=== PATIENT | male | born 1945 | race Caucasian/White ===

== ENCOUNTER 2017-12-07 19:30 | Outpatient (CLI) | payer MEDICARE | END 2017-12-07 19:31 | disposition home or self-care (01) | LOC: SLEEPLAB 19:30 | PROVIDERS: ATTEND Internal Medicine Critical Care Medicine | DX: G47.33 Obstructive sleep apnea (adult) (pediatric) (principal); E11.9 Type 2 diabetes mellitus without complications; I10 Essential (primary) hypertension; I25.10 Atherosclerotic heart disease of native coronary artery without angina pectoris | CPT/HCPCS: 95811 ==

== ENCOUNTER 2017-12-19 05:59 | Day surgery (SDC) | payer MEDICARE ==
[2017-12-19] MEDS ORDERED: PROPOFOL 200 MG/20 ML VIAL ONE (14:08)
--- NOTE | 2017-12-19 20:02 | OP ---
DATE OF PROCEDURE: 12/19/2017. OPERATIVE PROCEDURE: Esophagogastroduodenoscopy with biopsy. PREOPERATIVE DIAGNOSES: A 72-year-old male with recent drop in blood counts with anemia. The anemia is mild. The patient has no history of hematochezia or melena. The patient had similar e pisodes 2 years ago and he underwent colonoscopy and polypectomy. Because of recent drop in blood co unt, he was brought back for EGD. POSTOPERATIVE DIAGNOSES: 1. Normal esophagus and normal duodenum. 2. Had 2 small polyps over the stomach. PROCEDURE NOTE: The patient was placed on his left lateral position and was given sedation by Anesth esia Department. A [employer]ax video gastroscope under direct vision was passed down the oropharynx, past the GE junction into the stomach, and subsequently into the descending duodenum. The esophageal muc cullen appeared normal. The GE junction, no pathology seen. The fundus and cardia, no pathology seen. Over the gastric body, the patient was found to have 2 small gastric polyps. The polyps were biopsi ed. The incisura angularis, no pathology seen. The duodenal bulb and descending duodenum, no pathol ogy seen. The stomach was decompressed and the scope removed. DISCHARGE PLANNIN-year-old male came in for EGD because of recent drop in blood count . He does take Plavix and aspirin. The patient has no history of hematochezia or melena. He underw ent EGD with biopsy. DISCHARGE RECOMMENDATIONS: 1. The patient was advised to call me if he develops any melena, abdominal pain, hematemesis. 2. We will plan for a capsule endoscopy in the near future.
--- NOTE | 2017-12-21 09:22 | EKG ---
Test Reason : PREOP Blood Pressure : / mmHG Vent. Rate : 056 BPM Atrial Rate : 056 BPM P-R Int : 148 ms QRS Dur : 092 ms QT Int : 450 ms P-R-T Axes : 064 051 043 degrees QTc Int : 434 ms Sinus bradycardia Otherwise normal ECG When compared with ECG of 23-DEC-2016 03:46, No significant change was found Confirmed by CRISTELA WOOTEN ([id number]) on 12/21/2017 9:22:24 AM Referred By: CONRAD Confirmed By:CRISTELA WOOTEN
== END 2017-12-19 09:30 | disposition home or self-care (01) ==
LOC: SDC 05:59
PROVIDERS: ATTEND Internal Medicine Gastroenterology
PROC: 0DB78ZX Excision of Stomach, Pylorus, Via Natural or Artificial Opening Endoscopic, Diagnostic (ICD-10-PCS; principal; 2017-12-19)
DX: K29.50 Unspecified chronic gastritis without bleeding (principal); K31.7 Polyp of stomach and duodenum; D64.9 Anemia, unspecified; E11.9 Type 2 diabetes mellitus without complications; I10 Essential (primary) hypertension; E03.9 Hypothyroidism, unspecified; I25.10 Atherosclerotic heart disease of native coronary artery without angina pectoris; Z79.02 Long term (current) use of antithrombotics/antiplatelets; Z79.84 Long term (current) use of oral hypoglycemic drugs; Z79.82 Long term (current) use of aspirin; Z79.899 Other long term (current) drug therapy; Z95.5 Presence of coronary angioplasty implant and graft; Z98.890 Other specified postprocedural states; Z87.442 Personal history of urinary calculi; Z87.81 Personal history of (healed) traumatic fracture; Z87.891 Personal history of nicotine dependence
CPT/HCPCS: 36416; 88305; 88312; 93005; 93010; J2704

== ENCOUNTER 2022-04-19 12:49 | Outpatient (CLI) | payer MEDICARE | END 2022-04-19 12:50 | disposition home or self-care (01) | LOC: LABBT 12:49 | PROVIDERS: ATTEND Internal Medicine Hematology & Oncology | DX: Z20.822 Contact with and (suspected) exposure to COVID-19 (principal) | CPT/HCPCS: U0003; U0005 ==

== ENCOUNTER 2022-04-24 07:49 | Day surgery (SDC) | payer MEDICARE ==
[2022-04-24 08:17] LABS: INR-International Normal Ratio 1.2
[2022-04-24 08:18] LABS: PTT 42.9 sec (22.9-36.1)
[2022-04-24 11:32] VITALS: TEMP 97.6; BMI 30.5
[2022-04-24 12:31] VITALS: BP 136/77
== END 2022-04-24 12:05 | disposition home or self-care (01) ==
LOC: CT 07:49
PROVIDERS: ATTEND Internal Medicine Hematology & Oncology
PROC: 07DR3ZX Extraction of Iliac Bone Marrow, Percutaneous Approach, Diagnostic (ICD-10-PCS; principal; 2022-04-24)
DX: D72.828 Other elevated white blood cell count (principal); D75.81 Myelofibrosis; R16.1 Splenomegaly, not elsewhere classified; D64.9 Anemia, unspecified; D75.839 Thrombocytosis, unspecified; E11.9 Type 2 diabetes mellitus without complications; I25.2 Old myocardial infarction; I10 Essential (primary) hypertension; E07.9 Disorder of thyroid, unspecified; Z79.02 Long term (current) use of antithrombotics/antiplatelets; Z79.82 Long term (current) use of aspirin; Z79.84 Long term (current) use of oral hypoglycemic drugs; Z79.899 Other long term (current) drug therapy; Z87.891 Personal history of nicotine dependence; Z95.5 Presence of coronary angioplasty implant and graft
CPT/HCPCS: 20225; 77012; 85610; 85730; 88184; 88237; 88264; 88280

== ENCOUNTER 2023-01-14 11:26 | Observation (INO) | payer MEDICARE ==
[2023-01-14 12:04] VITALS: BMI 29.6
[2023-01-14] MEDS ORDERED: Ondansetron ODT 4 MG TAB PO PRN (12:31)
[2023-01-14] MEDS ORDERED: Acetaminophen 325 MG TAB PO PRN (12:31)
[2023-01-14] MEDS ORDERED: Ondansetron PF 4 MG/2 ML Vial IVP PRN (12:31)
[2023-01-14] MEDS ORDERED: Dextrose 5% in Water 1,000 ML IV PRN (12:43)
[2023-01-14] MEDS ORDERED: Dextrose 50% Abboject 50 ML SYRINGE SLOW IVP PRN (12:43)
[2023-01-14] MEDS ORDERED: HumaLOG 300 UNITS/3 ML VIAL SC PRN ×2 (12:45)
[2023-01-14 13:46] LABS: Troponin I Less than 0.010 ng/mL (< 0.028)
[2023-01-14 13:50] LABS: Magnesium 1.8 mg/dL (1.6-2.6); Phosphorus 3.7 mg/dL (2.3-4.7)
[2023-01-14] MEDS ORDERED: Magnesium 2 GM/50 ML(in water) 2 GM in Premix Bag 1 BAG IVPB SCH (15:00)
[2023-01-14] MEDS ORDERED: Glimepiride 4 MG TAB PO SCH (16:30)
[2023-01-14] MEDS ORDERED: metFORMIN 500 MG TAB PO SCH (17:00)
[2023-01-14] MEDS ORDERED: FLU VACC QS2022-23(65YR UP)/PF 240 MCG/0.7 ML SYRINGE IM ONE (18:00)
[2023-01-14] MEDS ORDERED: Simvastatin 10 MG TAB PO SCH (21:00)
[2023-01-15 05:40] LABS: Band 9 % (5-11); Hemoglobin 10.2 g/dL (14.0-18.0); Hypochromia SLIGHT = 6-15 cells (100X) (0-5/hpf); Lymphocytes 3 % (21-51); MDiff Complete? YES; Mean Corpuscular HGB CONC 33.2 g/dL (32.0-36.0); Mean Corpuscular Hemoglobin 31.2 pg (27.0-31.0); Mean Corpuscular Volume 93.9 fl (78.0-98.0); Mean Platelet Volume 7.6 fL (7.4-10.4); Monocytes 20 % (0-10); Neutrophil 67 % (42-75); Platelet Count 243 10x3/uL (130-400); Platelet Morphology Comment Appears Adequate; RBC Distribution Width 15.1 % (11.5-14.5); Reactive Lymphocytes 1 % (0-10); Red Blood Cell (RBC) Count 3.27 mill/uL (4.70-6.10); White Blood Cell (WBC) Count 9.2 10x3/uL (4.8-10.8)
[2023-01-15 05:47] LABS: Anion Gap 12 mmol/L (10-20); BUN (Urea Nitrogen) 16 mg/dL (8.4-25.7); Calc. Creatinine Clearance 88 mL/min (70-130); Calcium 8.7 mg/dL (7.8-10.44); Carbon Dioxide 24 mmol/L (23-31); Cardiac Risk 2.5 (Less than 4.5); Chloride 107 mmol/L (98-107); Cholesterol 60 mg/dl (< 200 Desired); Estimated GFR 72; Glucose 134 mg/dL (83-110); HDL Cholesterol 24 mg/dL (>60 Neg Risk); LDL Cholesterol, Calculated 21 mg/dL; Magnesium 1.9 mg/dL (1.6-2.6); Potassium 3.9 mmol/L (3.5-5.1); Sodium 139 mmol/L (136-145); Triglycerides 75 mg/dL (Less than 150)
[2023-01-15] MEDS ORDERED: Levothyroxine Sodium 50 MCG TAB PO SCH (06:00)
[2023-01-15] MEDS ORDERED: metFORMIN 500 MG TAB PO SCH (08:00)
[2023-01-15] MEDS ORDERED: Clopidogrel Bisulfate 75 MG TAB PO SCH (09:00)
[2023-01-15] MEDS ORDERED: Pioglitazone HCl 15 MG TAB PO SCH (09:00)
[2023-01-15] MEDS ORDERED: Aspirin 81 mg Enteric Coated Tablet PO SCH (09:00)
[2023-01-15] MEDS ORDERED: Lisinopril/Hydrochlorothiazide 10 mg/12.5 mg Tablet PO SCH (09:00)
[2023-01-15] MEDS ORDERED: Allopurinol 300 MG TAB PO SCH (09:00)
[2023-01-15] MEDS ORDERED: Empagliflozin 10 MG TAB PO SCH (09:00)
[2023-01-15] MEDS ORDERED: Furosemide 40 MG TAB PO SCH (09:00)
[2023-01-15] MEDS ORDERED: ADENOSINE 60 MG/20 ML VIAL ONE (09:09)
[2023-01-15 12:04] VITALS: BP 142/70; TEMP 97.1
== END 2023-01-15 15:30 | disposition home or self-care (01) ==
LOC: 2SW 11:26 → INTOOBSV 11:26
PROVIDERS: ADMIT Family Medicine; ATTEND Family Medicine
DX: R07.89 Other chest pain (principal); I25.10 Atherosclerotic heart disease of native coronary artery without angina pectoris; I25.2 Old myocardial infarction; I10 Essential (primary) hypertension; E11.9 Type 2 diabetes mellitus without complications; E03.9 Hypothyroidism, unspecified; D75.81 Myelofibrosis; Z87.891 Personal history of nicotine dependence; Z79.82 Long term (current) use of aspirin; Z79.84 Long term (current) use of oral hypoglycemic drugs; Z79.890 Hormone replacement therapy; Z79.899 Other long term (current) drug therapy; Z95.5 Presence of coronary angioplasty implant and graft; Z20.822 Contact with and (suspected) exposure to COVID-19
CPT/HCPCS: 78452; 80048; 80061; 82962 ×2; 83735 ×2; 84100; 84443; 84484; 85025; 85379; 93017; A9500; U0003; U0005; 36415; 36416; G0378; J0153; J3475

== ENCOUNTER 2023-12-08 11:01 | Day surgery (SDC) | payer MEDICARE ==
[2023-12-05 11:22] VITALS: BMI 27.9
[2023-12-08 12:45] LABS: Hematocrit 32.9 % (42.0-52.0); Hemoglobin 10.3 g/dL (14.0-18.0); Manual Diff?? YES; Mean Corpuscular HGB CONC 31.3 g/dL (32.0-36.0); Mean Corpuscular Hemoglobin 29.2 pg (27.0-31.0); Mean Corpuscular Volume 93.2 fl (78.0-98.0); Mean Platelet Volume 10.1 fL (7.4-10.4); Platelet Count 158 10x3/uL (130-400); RBC Distribution Width 16.4 % (11.5-14.5); Red Blood Cell (RBC) Count 3.53 mill/uL (4.70-6.10); White Blood Cell (WBC) Count 13.3 10x3/uL (4.8-10.8)
[2023-12-08 12:47] LABS: Delete Auto Diff?? YES
[2023-12-08] MEDS ORDERED: Bupivacaine PF 0.5% 30 ML VIAL ONE (13:09)
[2023-12-08] MEDS ORDERED: Bacitracin Zinc Ointment 30 gm TUBE ONE (13:09)
[2023-12-08 13:16] LABS: Band 7 % (5-11); Eosinophils 2 % (0-10); Lymphocytes 9 % (21-51); Monocytes 9 % (0-10); Myelocyte 3 % (0-0); Neutrophil 65 % (42-75); Nucleated RBC (Manual Ct) 1 % (0); Platelet Adequacy Comment Platelets Normal; Polychromasia SLIGHT = 2-3 cells HPF (0-2); Reactive Lymphocytes 1 % (0-10); Tear Drops SLIGHT = 2-5 cells HPF (0-1); Total Cell Count 100
[2023-12-08] MEDS ORDERED: PROPOFOL 20 ML ONE (13:57)
[2023-12-08] MEDS ORDERED: fentaNYL PF 100 MCG/2 ML SYRINGE ONE (13:57)
[2023-12-08] MEDS ORDERED: Lidocaine 1% PF 5 ML VIAL ONE (13:58)
[2023-12-08] MEDS ORDERED: CEFAZOLIN 2 GM VIAL ONE (14:00)
[2023-12-08] MEDS ORDERED: Sodium Chloride 0.9% 100 ML ONE (14:00)
[2023-12-08] MEDS ORDERED: Ondansetron PF 4 MG/2 ML Vial ONE (14:17)
[2023-12-08] MEDS ORDERED: Glycopyrrolate 0.2 MG/ML 5 ML SYRINGE ONE (14:17)
[2023-12-08] MEDS ORDERED: PHENYLEPHRINE-NS 100 MCG/ML 10 ML SYRINGE ONE (14:41)
[2023-12-08] MEDS ORDERED: Vancomycin 1 GM/200 ML (FROZEN) BAG ONE (15:14)
== END 2023-12-08 16:23 | disposition home or self-care (01) ==
LOC: SDC 11:01
PROVIDERS: ATTEND Orthopaedic Surgery Hand Surgery
PROC: 0PBT0ZX Excision of Right Finger Phalanx, Open Approach, Diagnostic (ICD-10-PCS; principal; 2023-12-08)
PROC: 0H9FXZZ Drainage of Right Hand Skin, External Approach (ICD-10-PCS; 2023-12-08)
DX: M86.141 Other acute osteomyelitis, right hand (principal); E11.622 Type 2 diabetes mellitus with other skin ulcer; L98.499 Non-pressure chronic ulcer of skin of other sites with unspecified severity; I10 Essential (primary) hypertension; E03.9 Hypothyroidism, unspecified; K21.9 Gastro-esophageal reflux disease without esophagitis; I25.2 Old myocardial infarction; Z98.890 Other specified postprocedural states; Z87.891 Personal history of nicotine dependence; Z90.12 Acquired absence of left breast and nipple
CPT/HCPCS: 20240; 82962; 85025; 86140; 87070; 87075; 87205; 93005; J3370; 36416; 87077; 87186; 88307; 88311; 93010; J0665; J2405; J2704; J3490

== ENCOUNTER 2024-01-05 12:25 | Outpatient (CLI) | payer MEDICARE | END 2024-01-05 12:26 | disposition home or self-care (01) | LOC: BICMRI 12:25 | PROVIDERS: ATTEND Orthopaedic Surgery Hand Surgery | DX: M86.10 Other acute osteomyelitis, unspecified site (principal); M86.8X4 Other osteomyelitis, hand | CPT/HCPCS: 70210 ==

== ENCOUNTER 2024-01-09 09:35 | Outpatient (CLI) | payer MEDICARE ==
[2024-01-09 10:40] LABS: Hematocrit 33.5 % (38.8-50.0); Mean Corpuscular HGB CONC 29.9 g/dL (32.0-36.0); Mean Corpuscular Hemoglobin 28.1 pg (27.0-33.0); Mean Corpuscular Volume 94.1 fl (81.2-95.1); Mean Platelet Volume 9.8 fl (7.4-10.4); Platelet Count 194 10x3/uL (150-450); RBC Distribution Width 16.8 % (11.5-14.5); Red Blood Cell (RBC) Count 3.56 10x6/uL (4.32-5.72); White Blood Cell (WBC) Count 11.9 10x3/uL (3.5-10.5)
[2024-01-09 12:57] LABS: MDiff Complete? YES
[2024-01-09 12:58] LABS: Band 4 % (5-11); Eosinophils 3 % (0-10); Lymphocytes 7 % (21-51); Metamyelocyte 2 % (0-0); Monocytes 9 % (0-10); Myelocyte 22 % (0-0); Neutrophil 53 % (42-75)
[2024-01-09 12:59] LABS: Anisocytosis SLIGHT = 6-15 cells (100X) (0-5/hpf); Platelet Adequacy Comment Appears Adequate; Reflex for Review?? YES
== END 2024-01-09 09:36 | disposition home or self-care (01) ==
LOC: LABBT 09:35
PROVIDERS: ATTEND Orthopaedic Surgery Hand Surgery
DX: Z01.812 Encounter for preprocedural laboratory examination (principal); M86.10 Other acute osteomyelitis, unspecified site; Z98.890 Other specified postprocedural states
CPT/HCPCS: 85025; 85060; 86140

== ENCOUNTER 2024-04-23 05:28 | Day surgery (SDC) | payer MEDICARE ==
[2024-04-20 09:48] VITALS: BMI 28.2
[2024-04-23] MEDS ORDERED: Bupivacaine PF 0.5% 30 ML VIAL ONE (06:17)
[2024-04-23] MEDS ORDERED: Bacitracin Zinc Ointment 30 gm TUBE ONE (06:19)
[2024-04-23] MEDS ORDERED: Sodium Chloride 0.9% 100 ML ONE (06:53)
[2024-04-23] MEDS ORDERED: CEFAZOLIN 2 GM VIAL ONE (06:53)
[2024-04-23] MEDS ORDERED: PROPOFOL 20 ML ONE (06:57)
[2024-04-23] MEDS ORDERED: fentaNYL PF 100 MCG/2 ML SYRINGE ONE (06:57)
[2024-04-23] MEDS ORDERED: Ketamine In 0.9 % NaCl 50 MG/5 ML SYRINGE ONE (07:05)
[2024-04-23] MEDS ORDERED: Ketorolac Tromethamine 30 MG (1 mL) VIAL ONE ×2 (07:29→08:06)
[2024-04-23] MEDS ORDERED: Dexamethasone 20 MG/5 ML VIAL ONE (07:29)
[2024-04-23] MEDS ORDERED: Lidocaine 1% PF 5 ML VIAL ONE (07:29)
[2024-04-23] MEDS ORDERED: Ondansetron PF 4 MG/2 ML Vial ONE (07:29)
== END 2024-04-23 09:20 | disposition home or self-care (01) ==
LOC: SDC 05:28
PROVIDERS: ATTEND Orthopaedic Surgery Hand Surgery
PROC: 01N50ZZ Release Median Nerve, Open Approach (ICD-10-PCS; principal; 2024-04-23)
DX: G56.02 Carpal tunnel syndrome, left upper limb (principal); M86.10 Other acute osteomyelitis, unspecified site; I10 Essential (primary) hypertension; E11.9 Type 2 diabetes mellitus without complications; Z98.890 Other specified postprocedural states; Z87.891 Personal history of nicotine dependence
CPT/HCPCS: 64721; A6223; J0665; J1100; J1885; J2405; J2704; J3490 ×2

== ENCOUNTER 2025-01-06 09:23 | Outpatient (CLI) | payer MEDICARE | END 2025-01-06 09:24 | disposition home or self-care (01) | LOC: CT 09:23 | PROVIDERS: ATTEND Orthopaedic Surgery | DX: N20.0 Calculus of kidney (principal); K80.20 Calculus of gallbladder without cholecystitis without obstruction; I51.7 Cardiomegaly; R16.1 Splenomegaly, not elsewhere classified; R18.8 Other ascites | CPT/HCPCS: 74176 ==